=== PATIENT | male | born 1945 | race African-American/Black ===

== ENCOUNTER 2017-06-21 05:26 | Inpatient (IN) ==
[2017-06-12 09:57] LABS: Basophils % 0.3 % (0.0-0.8); Eosinophils # 0.1 10*3/uL (0.0-0.87); Eosinophils % 1.6 % (0.00-10.9); Hematocrit 34.9 VOL% (42.0-52.0); Hemoglobin 11.8 GM/DL (14.0-18.0); Immature Granulocytes % 0.4 %; Immature Granulocytes Absolute 0.03 #; Lymphocytes # 2.2 10*3/uL (1.4-4.0); Lymphocytes % 31.3 % (21.2-54.2); Mean Corpuscular HGB Conc 33.8 GM/DL (32-36); Mean Corpuscular Hemoglobin 28 PG (27-34); Mean Corpuscular Volume 83.7 FL (87-102); Mean Platelet Volume 8.7 FL (9.6-12.0); Monocytes # 0.6 10*3/uL (0.11-0.8); Monocytes % 8.5 % (1.7-12.7); Neutrophils % 57.9 % (38.7-73.9); Platelet Count 350 T/CUMM (130-400); Red Blood Count 4.17 MC/CUMM (3.8-5.5); Red Cell Distribution Width 13.8 % (9.3-17.3); White Blood Count 6.9 T/CUMM (4-12)
[2017-06-12 10:07] LABS: Apearance,Urine CLEAR (Clear); Bacteria,Urine Occasional /HPF (Few); Bilirubin,Urine Negative (Negative); Blood, Urine Negative (Negative); Glucose,Urine (UA) 50 mg/dL (Negative); Ketones,Urine Negative (Negative); Mucus,Urine Occasional /LPF (Occasional); Nitrite,Urine Negative (Negative); Protein,Urine Negative; RBC,Urine <1 /HPF (0-4); Urine Color Yellow (Yellow); Urine Specific Gravity 1.014 (1.001-1.035); Urine Urobilinogen < 2.0 EU/DL (0.2-1.0); WBC,Urine <1 /HPF (0-6)
--- NOTE | 2017-06-12 10:27 | EKG Report ---
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
[2017-06-12 10:30] LABS: Osmolality,Calculated 285.3 MOS/KG (273-304); Potassium 3.4 MMOL/L (3.5-5.1)
[2017-06-21] MEDS ORDERED: ALVIMOPAN 12 MG CAPSULE ONE (06:00)
[2017-06-21] MEDS ORDERED: SODIUM PHOSPHATE ENEMA 133 ML BOTTLE RECTAL ONE ×2 (06:00→06:01)
[2017-06-21] MEDS ORDERED: ALVIMOPAN 12 MG CAPSULE PO ONE (06:00)
[2017-06-21] MEDS ORDERED: cefTRIAXone 1,000 MG VIAL ONE (06:00)
[2017-06-21] MEDS ORDERED: cefTRIAXone 1,000 MG in SODIUM CHLORIDE 0.9% 100 ML IV ONE (06:00)
[2017-06-21] MEDS ORDERED: SODIUM CHLORIDE 0.9% 100 ML IV ONE (06:01)
[2017-06-21] MEDS ORDERED: LACTATED RINGERS 1,000 ML IV SCH (06:30)
[2017-06-21] MEDS ORDERED: KETOROLAC 30 MG/1 ML VIAL ONE (07:00)
[2017-06-21] MEDS ORDERED: LIDOCAINE 1% 5 ML VIAL ONE (07:00)
[2017-06-21] MEDS ORDERED: PHENYLEPHRINE 1 MG/10 ML SYRINGE IV ONE (07:00)
[2017-06-21] MEDS ORDERED: GLYCOPYRROLATE 0.4 MG/2 ML VIAL ONE (07:00)
[2017-06-21] MEDS ORDERED: PROPOFOL 200 MG/20 ML VIAL IV ONE (07:00)
[2017-06-21] MEDS ORDERED: ROCURONIUM 100 MG/10 ML VIAL IV ONE (07:00)
[2017-06-21] MEDS ORDERED: ONDANSETRON 4 MG/2 ML VIAL ONE (07:00)
[2017-06-21] MEDS ORDERED: NEOSTIGMINE 10 MG/10 ML VIAL ONE (07:00)
[2017-06-21] MEDS ORDERED: DEXAMETHASONE 10 MG/1 ML VIAL ONE (07:00)
[2017-06-21 08:12] LABS: Apearance,Urine CLEAR (Clear); Bilirubin,Urine Negative (Negative); Blood, Urine Moderate mg/dL (Negative); Glucose,Urine (UA) Negative (Negative); Ketones,Urine Negative (Negative); Nitrite,Urine Negative (Negative); Protein,Urine Negative; RBC,Urine 75 /HPF (0-4); Urine Color Straw (Yellow); Urine Specific Gravity 1.009 (1.001-1.035); Urine Urobilinogen < 2.0 EU/DL (0.2-1.0); WBC,Urine <1 /HPF (0-6)
[2017-06-21] MEDS ORDERED: ONDANSETRON 4 MG/2 ML VIAL IV PRN (12:05)
[2017-06-21] MEDS ORDERED: diphenhydrAMINE 50 MG/1 ML VIAL IV PRN (12:05)
--- NOTE | 2017-06-21 12:22 | Anesthesia Post-Op ---
Anesthesia Post OP - Post Ansesthetic Evaluation Patient seen in post op: Yes Resp: within normal limits CV: within normal limits Mental: within normal limits Temp: within normal limits Nllu-[id number]-Peztdjdtn: within normal limits Nausea and Vomiting: within normal limits Pain: within normal limits
--- NOTE | 2017-06-21 12:25 | Operative Note ---
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 This procedure was explained at length and in detail. Risks, complications, outcomes, sequelae, prognosis and alternative therapy was discussed. Patient understood this and agreed to proceed. Patient is brought to the operative suite placed table in the supine position on the securing pads and given a general endotracheal anesthetic. He is then secured to the table in lithotomy position and then prepared and draped in the usual sterile manner. 22 Palauan Blake was placed in the bladder. Left to gravity after draining the bladder. Patient is an placed in lithotomy position. Incision is created in the left upper quadrant for the mini gel port. This then placed and pneumoperitoneum was obtained. Camera was inserted in this and the intra-abdominal contents are noted. There is no significant adhesions to the abdominal wall. There is some adhesions on the left side of the colon which is common will have to be taken down. Camera port is then placed through the incision up above the umbilicus. About 8 cm to the left and right of the camera to the operating ports are placed under direct vision and lateral to the third arm on the right fourth arm is placed about 8 cm #3. This is all done under direct vision. The robot was then docked and I went to the console. [place] bipolar forceps in the left and monopolar scissors in the right posterior approach was begun. Incision is created in the anterior cul-de-sac and vas deferens identified isolated clipped with a Weck clip and divided. This done on both both of them. Seminal vesicles and dissected out of bed. Window in Denonvilliers's fascia is created. It is very apparent at this point that this is a very large prostate. This was known in the try to shrink it somewhat Avodart. Attention was directed to the creating the bladder flap. The urachus is well- defined as well as median umbilical ligaments these are both divided and the bladder flap dropped down in the pelvis. Endopelvic fascia was incised bilaterally. And again very apparent this is a quite a large prostate. Puboprostatics were incised. Dorsal vein was ligated with #1 Vicryl. It was difficult to ascertain exactly where the bladder and prostate were joined but with bunching of the tissue and light traction on the Blake the bladder neck was incised anteriorly. The bladder was entered. Very large prostate so our bladder neck is going to be wine. And actually his prostate is asymmetric with the right side being smaller than the left. Ureteral orifices were identified but were close due to the size of the prostate so umbilical catheters were passed up each ureter and then placed in the bladder to help identify them. Posterior bladder neck is incised and dissection was continued posteriorly for quite some distance as this is a large prostate. Lateral lobe bladder neck was incised and pedicles were intermittently taken down and with clipped and divided. This took quite a lot of time to the size of the prostate. We attempted to spare his nerves even though this is a large prostate the lateral prostatic fascia was incised and there is was divided on both sides. Posterior lateral pedicles were taken down intermittently and Weck clipped and divided. Prostate was pulled up and dissection was continued posteriorly. The nerve was dissected laterally. This was difficult due to the size of the prostate. But I was eventually able to dissect almost to the apex with sparing as much of the nerve is likely on both sides. The dorsal vein was then divided and dissection was continued laterally where the the lateral prostatic fascia was incised and the nerve was swept laterally. The urethra was then divided Blake catheter was pulled back and the posterior urethra was divided remainder attachments were sharply divided. Prostate was associated seminal vesicles were then placed in specimen bag and pulled to the side. Inspection of the bladder neck revealed that this is going to have to be reconstructed as this is just too large for an anastomosis. And we will do this with a tennis racquet fashion. About half of the bladder neck was then closed in this fashion. A 4-0 Vicryl was used in running to close the mucosa and a 2 oh rony suture was then used to close it with a tennis racquet anteriorly. No dissection was done on both sides. Adventitia the external iliac vein was entered the markell tissue was swept obturator fossa. The obturator nerve was identified kept in view at all team times and not injured. This was done on both sides. 3 okay vidian was was used to provide the anastomosis beginning at 6 o'clock position. A 2-0 Vicryl Sergio stitch was placed prior to the anastomosis to help with approximation. But a new 22 Palauan Blake catheter was then placed in the bladder after anastomosis and tied and this was a surprisingly watertight anastomosis. But due to the large bladder neck and the reconstruction I will elected leave a drain. A small Graeme-Stern was placed in the pelvis. Pneumoperitoneum was dropped there is no significant bleeding. I re-scrubbed and came back to the table. The patient was laying in supine position after undocking and the ports were removed. The mini port incision had to be extended due to the size of the prostate with the prostate was then removed with this associated seminal vesicles and this wound was then closed with interrupted #1 Vicryl. All other wounds were irrigated and drained and hemostasis checked. And skin closed skin clips. Drain was pulled out through the fourth arm this was sewn to the skin with 2-0 silk. Sterile dressings were placed on the wound. Patient was then awakened general anesthesia having tolerated procedure well and was sent to the recovery room in stable condition. All sponge, needle and instrument counts correct 2. Implants: 22 Palauan silicone Blake Anesthesia: GETA Surgeon / Physician: Familia Jarvis Estimated blood loss: other (300 cc) Specimens: other (Prostate with associated seminal vesicles, bilateral obturator nodes) Condition: stable Disposition: PACU Results - Labs CBC & BMP: 06/12/17 09:49 06/21/17 06:07 Discharge Plan - Discharge Medications No Action Atorvastatin [Lipitor] 20 mg PO BEDTIME Lisinopril/Hydrochlorothiazide [Lisinopril-Hctz 20-25 mg Tab] 1 each PO DAILY Amlodipine Besylate 10 mg PO DAILY metFORMIN [Glucophage] 500 mg PO BID W/MEALS Dutasteride 0.5 mg PO DAILY - Follow Up or Referral - Forms/Instructions
[2017-06-21] MEDS ORDERED: DESFLURANE 1 UNIT/15 MINUTE INH ONE (12:26)
[2017-06-21] MEDS ORDERED: MIDAZOLAM 2 MG/2 ML VIAL ONE (12:28)
[2017-06-21] MEDS ORDERED: ACETAMINOPHEN 1,000 MG/100 ML VIAL IV ONE (12:28)
[2017-06-21] MEDS ORDERED: LACTATED RINGERS 1,000 ML IV ONE (12:28)
[2017-06-21] MEDS ORDERED: HYDROmorphone PCA 30 MG/30 ML SYRINGE IV SCH (12:30)
[2017-06-21] MEDS ORDERED: HYDROmorphone PCA 30 MG/30 ML SYRINGE IV ONE (12:35)
[2017-06-21] MEDS: SODIUM CHLORIDE 0.45% 1,000 ML IV SCH ×2 (12:50→21:16)
[2017-06-21] MEDS ORDERED: GLUCAGON 1 MG VIAL IM PRN (13:38)
[2017-06-21] MEDS ORDERED: DEXTROSE 50% 25 GM/50 ML SYRINGE IV PRN (13:38)
--- NOTE | 2017-06-21 14:27 | Hospitalist Consult Note ---
Assessment and Plan - Time spent with patient Time spent with patient: Greater than 30 minutes (1) Diabetes Status: Acute Assessment and plan: 71-year-old -Citizen Of [place] male with history of diabetes and hypertension admitted by Dr. Familia Jarvis for robotic assisted laparoscopic prostatectomy that was performed this morning. Patient's metformin will be held during this hospital stay and sliding scale insulin has been started. We will monitor his blood sugars before meals and at bedtime. Patient's antihypertensives have been restarted and we will monitor for narcotic induced hypotension. Patient will continue with IV fluids and diet as tolerated for now. Dr. Arteaga will see and examine patient and further recommendations to follow. Current Visit: Yes (2) Hypertension Status: Acute Current Visit: Yes (3) Status post prostate surgery Status: Acute Current Visit: Yes History of Present Illness - Data of Consult Patient: new to practice Consult date: 06/21/17 Requesting Physician: Familia Jarvis Primary care physician: Seth Medellin - Consult Narrative Reason for consult: medical management History of present illness: Mr. Abarca is a 71 year old male with history of diabetes, hypertension, prostate cancer admitted by Dr. Jarvis for robotic assisted laparoscopic prostatectomy for prostate cancer. Patient is doing well recovering in the room. He is awake and alert but sleepy. He is a patient of Dr. Medellin. He has been following up with Dr. Jarvis for benign prostatic hyperplasia with lower urinary tract symptoms. Patient is afebrile and his vital signs are stable. His preoperative labs are relatively normal with a blood sugar of 284. His dressings are intact with some oozing, a ADAMARIS drain with bloody fluid, and Blake with bloody urine. Hospitalist been consulted for medical management. Patient' s medicines have been reconciled and he is a full code. CC: Familia Jarvis MD - Home Medications and Allergies Home Medications: Home Medications Medication Instructions Recorded Confirmed Type Amlodipine Besylate 10 mg PO DAILY 06/12/17 06/21/17 History Atorvastatin [Lipitor] 20 mg PO BEDTIME 06/12/17 06/21/17 History Dutasteride 0.5 mg PO DAILY 06/12/17 06/21/17 History Lisinopril/Hydrochlorothiazide 1 each PO DAILY 06/12/17 06/21/17 History [Lisinopril-Hctz 20-25 mg Tab] metFORMIN [Glucophage] 500 mg PO BID W/MEALS 06/12/17 06/21/17 History Allergies/Adverse Reactions: Allergies Allergy/AdvReac Type Severity Reaction Status Date / Time No Known Allergies Allergy Verified 06/21/17 06:31 Medical,Surgical,& Family Hx - Medical History Cardio: History of: Hypertension Psychological: No history of: Anxiety Disorders, ADHD, Behavior Problems, Bipolar Disorder, Depression, Previous Suicide Attempt, Psychiatric/Substance Abuse Tx, Schizophrenia, Violent Behavior, Psychiatric Problems Neurology: No history of: Seizures HEENT: History of: Eye Problem (GLASSES) Endocrine: History of: Diabetes Mellitus (NIDDM), Dyslipidemia Respiratory: No history of: Respiratory Problems (FLU VAC-NO; PNEU VAC- NO.) Genitourinary: History of: Prostate Problems - Surgical History Cardiac Surgeries: Patient Denies: Cardiac Catheterization Reproductive Surgeries: Surgical HX of;: Prostate Surgery - Family History Family History: Reports;: Family Diabetes, Family Hypertension Denies;: Family Anesthesia Reaction, Family Cancer, Family Heart Disease, Family Hematology, Family Psychiatric Problems, Family Stroke - Social History Smoking Status: Never smoker Frequency of Alcohol Use: None Type of Drug Use: None Marital Status: Lives With:: Spouse Functional capacity: independent ambulation 12 point system: reviewed and no additional remarkable complaints except as stated Exam - Constitutional Vitals: Period Temp Pulse Resp BP Sys/Gottlieb Pulse Ox Last 24 Hr 97.6 F-98.7 F 78-86 16-18 94-147/56-74 93-99 Exam: Constitutional System: No distress. No tremulousness. Head: Normocephalic, atraumatic. Ears, Nose and Throat System: No evidence of Otitis or Mastoiditis. No epistaxis or discharge Eyes System: Pupils equal, round, and reactive. Extraocular muscles intact. Neck: Supple, without adenopathy, No jugular venous distention. No thyromegaly, neck mass, or prior surgery apparent. Respiratory System: Chest clear to auscultation. Cardiovascular System: Heart with regular rate and rhythm. No murmur. GI System: Abdomen soft, appropriately tender. Hypo-active bowel sounds present. Dressings intact with some oozing, ADAMARIS drain with bloody fluid, Blake with bloody urine Musculoskeletal System: limbs with no pedal edema. Full distal pulses. Neurological System: No discernable sensory deficit. No aphasia Psychiatric System: Conversation is rational Results - Labs CBC & BMP: 06/12/17 09:49 06/21/17 06:07 Lab Results: I have reviewed the past 24 hour labs
[2017-06-21] MEDS ORDERED: metFORMIN 500 MG TABLET PO SCH (17:00)
[2017-06-21] MEDS: INSULIN LISPRO 100 UNIT/ML SUBCUT SCH (17:09)
--- NOTE | 2017-06-21 18:57 | Urology Progress Note ---
Urology - PN: Subj Interval history: Postoperative check. Patient is awake and alert he sitting in the chair. His urine is bloody. This is not surprising considering the reconstruction I had to do his bladder neck. His ADAMARIS put out 110 cc and this is not surprising either considering the amount of surgery and the size of his prostate. He looks well. His vital signs are stable. He is having minimal pain. Patient is stable. Exam - Constitutional Vitals: Period Temp Pulse Resp BP Sys/Gottlieb Pulse Ox Last 24 Hr 97.6 F-98.7 F 78-86 16-19 94-147/56-74 93-99 Results - Labs CBC & BMP: 06/12/17 09:49 06/21/17 06:07
[2017-06-21] MEDS: ATORVASTATIN 20 MG TABLET PO SCH (21:17)
[2017-06-21] MEDS: ALVIMOPAN 12 MG CAPSULE PO SCH (21:17)
[2017-06-21] MEDS: LACTULOSE 20 GM/30 ML UDCUP PO SCH (21:17)
[2017-06-22] MEDS: LACTULOSE 20 GM/30 ML UDCUP PO SCH ×2 (08:03→20:24)
[2017-06-22] MEDS: LISINOPRIL/HCTZ 20-25 MG TABLET PO SCH (08:03)
[2017-06-22] MEDS: OXYBUTYNIN XL 10 MG TABLET PO SCH (08:04)
[2017-06-22] MEDS: ALVIMOPAN 12 MG CAPSULE PO SCH ×2 (08:05→20:24)
[2017-06-22] MEDS: INSULIN LISPRO 100 UNIT/ML SUBCUT SCH ×2 (08:08→17:07)
[2017-06-22 08:09] LABS: Basophils % 0.1 % (0.0-0.8); Eosinophils % 0.1 % (0.00-10.9); Hematocrit 27.6 VOL% (42.0-52.0); Hemoglobin 9.2 GM/DL (14.0-18.0); Immature Granulocytes % 0.4 %; Immature Granulocytes Absolute 0.04 #; Lymphocytes # 1.9 10*3/uL (1.4-4.0); Lymphocytes % 17.2 % (21.2-54.2); Mean Corpuscular HGB Conc 33.3 GM/DL (32-36); Mean Corpuscular Hemoglobin 28 PG (27-34); Mean Corpuscular Volume 82.6 FL (87-102); Mean Platelet Volume 9.2 FL (9.6-12.0); Monocytes % 9.4 % (1.7-12.7); Neutrophils # 7.9 10*3/uL (1.4-7.4); Neutrophils % 72.8 % (38.7-73.9); Platelet Count 272 T/CUMM (130-400); Red Blood Count 3.34 MC/CUMM (3.8-5.5); Red Cell Distribution Width 13.7 % (9.3-17.3); White Blood Count 10.8 T/CUMM (4-12)
[2017-06-22 08:38] LABS: Hypochromasia 1+; Lymphocytes 8 % (20-55); Platelet Estimate Adequate; Segmented Neutrophils 79 % (50-85); Total Cells Counted 100
[2017-06-22] MEDS: amLODIPine 10 MG TABLET PO SCH (08:38)
[2017-06-22 08:40] LABS: Osmolality,Calculated 280.5 MOS/KG (273-304); Potassium 3.3 MMOL/L (3.5-5.1)
[2017-06-22] MEDS: SODIUM CHLORIDE 0.45% 1,000 ML IV SCH ×2 (08:44→20:23)
[2017-06-22] MEDS ORDERED: oxyCODONE/ACETAMINOPHEN 5-325 MG TABLET PO PRN (09:14)
[2017-06-22] MEDS ORDERED: MEPERIDINE 50 MG/1 ML VIAL IM PRN (09:15)
[2017-06-22] MEDS ORDERED: POTASSIUM CHLORIDE 20 MEQ TABLET PO ONE (10:05)
--- NOTE | 2017-06-22 10:05 | Hospitalist Progress Note ---
Assessment and Plan - Time spent with patient Time spent with patient: Less than 30 minutes (1) Diabetes Status: Acute Assessment and plan: 71-year-old -[place] male with history of diabetes and hypertension admitted by Dr. Familia Jarvis for robotic assisted laparoscopic prostatectomy that was performed this morning. Patient's metformin will be held during this hospital stay and sliding scale insulin has been started. We will monitor his blood sugars before meals and at bedtime. Patient's antihypertensives have been restarted and we will monitor for narcotic induced hypotension. Patient will continue with IV fluids and diet as tolerated for now. Dr. Arteaga will see and examine patient and further recommendations to follow. 06/22/2017 patient is doing great this morning. He is tolerating a diet and pain is controlled. He is not using his FINGER LIFT OPERATOR so we will go ahead and DC the FINGER LIFT OPERATOR and start p.o. pain medications. Will get patient up and walking today. His ADAMARIS output is 50 mL of bloody fluid the last 12 hours, and urine output is bloody but okay. Patient's blood sugars are well controlled along with blood pressure. We will continue to monitor these. Will defer to Dr. Jarvis for removal of Blake and discharge day. Discussed with Dr. Arteaga. Current Visit: Yes (2) Hypertension Status: Acute Current Visit: Yes (3) Status post prostate surgery Status: Acute Current Visit: Yes Hospitalist: Subjective Interval history: Patient looks and feels well this morning. His pain is well controlled. He is tolerating a diet without any nausea or vomiting. He did get up in the chair last night but he is expressing interest in walking today. Exam - Constitutional Vitals: Period Temp Pulse Resp BP Sys/Gottlieb Pulse Ox Last 24 Hr 97.4 F-98.7 F 74-86 16-20 94-121/56-72 93-99 Exam: Constitutional System: No distress. No tremulousness. Head: Normocephalic, atraumatic. Ears, Nose and Throat System: No evidence of Otitis or Mastoiditis. No epistaxis or discharge Eyes System: Pupils equal, round, and reactive. Extraocular muscles intact. Neck: Supple, without adenopathy, No jugular venous distention. No thyromegaly, neck mass, or prior surgery apparent. Respiratory System: Chest clear to auscultation. Cardiovascular System: Heart with regular rate and rhythm. No murmur. GI System: Abdomen soft, appropriately tender. bowel sounds present. Dressings intact with some oozing, ADAMARIS drain with bloody fluid, Blake with bloody urine Musculoskeletal System: limbs with no pedal edema. Full distal pulses. Neurological System: No discernable sensory deficit. No aphasia Psychiatric System: Conversation is rational Results - Labs CBC & BMP: 06/22/17 07:00 06/22/17 07:00 Lab Results: I have reviewed the past 24 hour labs
--- NOTE | 2017-06-22 11:05 | Urology Progress Note ---
Urology - PN: Subj Interval history: Patient has stable night. Wounds are healing well. Urine still slightly bloody. I am not surprised considering the reconstruction I had the due to his bladder neck. His ADAMARIS is decreasing. We will probably remove it tomorrow. We will stop his COMPUTER SYSTEMS INTEGRATOR and place him on oral medication. He needs to ambulate. Pathology report is pending of course. Exam - Constitutional Vitals: Period Temp Pulse Resp BP Sys/Gottlieb Pulse Ox Last 24 Hr 97.4 F-98.7 F 74-86 16-20 94-121/56-73 93-99 Results - Labs CBC & BMP: 06/22/17 07:00 06/22/17 07:00
[2017-06-22] MEDS ORDERED: ALUMINUM/MAGNES/SIMETH MAX STR 30 ML UDCUP PO PRN (17:12)
[2017-06-22] MEDS: ATORVASTATIN 20 MG TABLET PO SCH (20:24)
[2017-06-23] MEDS: SODIUM CHLORIDE 0.45% 1,000 ML IV SCH (05:36)
[2017-06-23 06:47] LABS: Basophils % 0.1 % (0.0-0.8); Eosinophils % 0.2 % (0.00-10.9); Hematocrit 30.1 VOL% (42.0-52.0); Hemoglobin 9.9 GM/DL (14.0-18.0); Immature Granulocytes % 0.4 %; Immature Granulocytes Absolute 0.04 #; Lymphocytes # 2.3 10*3/uL (1.4-4.0); Mean Corpuscular HGB Conc 32.9 GM/DL (32-36); Mean Corpuscular Hemoglobin 27 PG (27-34); Mean Corpuscular Volume 82.7 FL (87-102); Mean Platelet Volume 9.2 FL (9.6-12.0); Monocytes # 0.9 10*3/uL (0.11-0.8); Monocytes % 8.7 % (1.7-12.7); Neutrophils % 68.6 % (38.7-73.9); Platelet Count 322 T/CUMM (130-400); Red Blood Count 3.64 MC/CUMM (3.8-5.5); Red Cell Distribution Width 13.7 % (9.3-17.3); White Blood Count 10.3 T/CUMM (4-12)
[2017-06-23] MEDS: amLODIPine 10 MG TABLET PO SCH (08:33)
[2017-06-23] MEDS: OXYBUTYNIN XL 10 MG TABLET PO SCH (08:33)
[2017-06-23] MEDS: ALVIMOPAN 12 MG CAPSULE PO SCH (08:33)
[2017-06-23] MEDS: LACTULOSE 20 GM/30 ML UDCUP PO SCH (08:34)
[2017-06-23] MEDS: INSULIN LISPRO 100 UNIT/ML SUBCUT SCH (08:34)
[2017-06-23] MEDS: LISINOPRIL/HCTZ 20-25 MG TABLET PO SCH (08:34)
--- NOTE | 2017-06-23 09:12 | Discharge Summary ---
Hospital Course - Hospital Course Hospital Course: 71-year-old gentleman with intermediate risk carcinoma prostate underwent a robotic prostatectomy. He had a very large prostate and had to reconstruct his bladder neck. Pathology report is pending. Blood count is 10 and 30. His potassium was low but was supplemented up to 3.6. His ADAMARIS drainage is serosanguineous we will remove that. His urine is clear. We will discharge him see me in the office in 2 weeks. Diagnosis - Discharge Diagnosis (1) Diabetes Status: Acute (2) Hypertension Status: Acute (3) Status post prostate surgery Status: Acute Discharge Plan - Discharge Data Disposition: Disch To Home/Self Care Condition at Discharge: Stable Discharge Diet: diabetic diet Activity: no lifting, other (Walking on flat ground is encouraged no strenuous activity) Hygiene: no restrictions Weight Bearing at Discharge: full weight bearing Driving: not until seen by doctor Contact your physician if you experience:: fever over 101, Bleeding, pain uncontrolled by pain medications - Discharge Medications New Oxybutynin Xl [Ditropan Xl] 10 mg PO DAILY tablet oxyCODONE/ACETAMINOPHEN 5-325 [Percocet 5-325] 1 - 2 tablet PO Q4H PRN tablet PRN Reason: Pain Moderate (4-7) Continue Atorvastatin [Lipitor] 20 mg PO BEDTIME Lisinopril/Hydrochlorothiazide [Lisinopril-Hctz 20-25 mg Tab] 1 each PO DAILY Amlodipine Besylate 10 mg PO DAILY metFORMIN [Glucophage] 500 mg PO BID W/MEALS Discontinued Dutasteride 0.5 mg PO DAILY - Follow Up or Referral - Forms/Instructions Exam - Constitutional Vitals: Period Temp Pulse Resp BP Sys/Gottlieb Pulse Ox Last 24 Hr 97.6 F-99.4 F 82-98 16-20 125-143/69-78 93-99 Discharge Results Labs on day of discharge: Labs from last 24 hours 06/23/17 06/23/17 06/23/17 07:18 05:37 05:37 WBC 10.3 RBC 3.64 L Hgb 9.9 L Hct 30.1 L MCV 82.7 L MCH 27 MCHC 32.9 RDW 13.7 Plt Count 322 MPV 9.2 L Neut % (Auto) 68.6 Lymph % (Auto) 22.0 Smith % (Auto) 8.7 Eos % (Auto) 0.2 Baso % (Auto) 0.1 Neut # (Auto) 7.0 Lymph # (Auto) 2.3 Smith # (Auto) 0.9 H Eos # (Auto) 0.0 Baso # (Auto) 0.0 Immature Gran % 0.4 Nucleated RBC % 0.0 Immature Gran # 0.04 Nucleated RBCs # 0.00 Immature Plt Fraction 0.0 Potassium 3.6 POC Glucose 166 H 06/22/17 06/22/17 06/22/17 19:25 16:33 12:38 WBC RBC Hgb Hct MCV MCH MCHC RDW Plt Count MPV Neut % (Auto) Lymph % (Auto) Smith % (Auto) Eos % (Auto) Baso % (Auto) Neut # (Auto) Lymph # (Auto) Smith # (Auto) Eos # (Auto) Baso # (Auto) Immature Gran % Nucleated RBC % Immature Gran # Nucleated RBCs # Immature Plt Fraction Potassium POC Glucose 135 H 181 H 191 H DS: Provider Date of admission: 06/21/17 12:05 Primary care physician: . No PCP Attending physician on admission: Familia Jarvis MD Consults: 06/22/17 09:21 Consult to Physician [CONS] Routine Comment: Consulting Provider: Cheryl Arteaga Consult Notification Comment: he is aware, saw on 06-21-2017 Discharging clinician: Familia Jarvis MD
[2017-06-23 12:34] VITALS: BP 140/70
--- NOTE | 2017-06-23 13:43 | Hospitalist Progress Note ---
Assessment and Plan - Time spent with patient Time spent with patient: Less than 30 minutes (1) Diabetes Status: Acute Assessment and plan: 71-year-old -Thai male with history of diabetes and hypertension admitted by Dr. Familia Jarvis for robotic assisted laparoscopic prostatectomy that was performed this morning. Patient's metformin will be held during this hospital stay and sliding scale insulin has been started. We will monitor his blood sugars before meals and at bedtime. Patient's antihypertensives have been restarted and we will monitor for narcotic induced hypotension. Patient will continue with IV fluids and diet as tolerated for now. Dr. Arteaga will see and examine patient and further recommendations to follow. 06/22/2017 patient is doing great this morning. He is tolerating a diet and pain is controlled. He is not using his QUICK MIXER OPERATOR so we will go ahead and DC the QUICK MIXER OPERATOR and start p.o. pain medications. Will get patient up and walking today. His ADAMARIS output is 50 mL of bloody fluid the last 12 hours, and urine output is bloody but okay. Patient's blood sugars are well controlled along with blood pressure. We will continue to monitor these. Will defer to Dr. Jarvis for removal of Blake and discharge day. Discussed with Dr. Arteaga. 06/23/2017 patient is doing great. He is tolerating a diet and his pain is controlled. His blood pressures are controlled and blood sugars as well. When okay with Dr. Jarvis he is okay for discharge on his regular home medications. Dr. Arteaga will see and examined patient and further recommendations to follow. Current Visit: Yes (2) Hypertension Status: Acute Current Visit: Yes (3) Status post prostate surgery Status: Acute Current Visit: Yes Hospitalist: Subjective Interval history: Patient feels great today. He is tolerating a diet and not using any pain medications. He is ambulating in the room in the halls. He is ready for discharge. Exam - Constitutional Vitals: Period Temp Pulse Resp BP Sys/Gottlieb Pulse Ox Last 24 Hr 98.0 F-99.4 F 90-98 16-20 128-143/70-78 93-99 Exam: Constitutional System: No distress. No tremulousness. Head: Normocephalic, atraumatic. Ears, Nose and Throat System: No evidence of Otitis or Mastoiditis. No epistaxis or discharge Eyes System: Pupils equal, round, and reactive. Extraocular muscles intact. Neck: Supple, without adenopathy, No jugular venous distention. No thyromegaly, neck mass, or prior surgery apparent. Respiratory System: Chest clear to auscultation. Cardiovascular System: Heart with regular rate and rhythm. No murmur. GI System: Abdomen soft, appropriately tender. bowel sounds present. Dressings intact with some oozing, ADAMARIS drain with bloody fluid, Blake with urine clearing Musculoskeletal System: limbs with no pedal edema. Full distal pulses. Neurological System: No discernable sensory deficit. No aphasia Psychiatric System: Conversation is rational Results - Labs CBC & BMP: 06/23/17 05:37 06/23/17 05:37 Lab Results: I have reviewed the past 24 hour labs Specialty Discharge - Follow Up or Referrals Follow up with: Familia Jarvis MD [Physician] - 07/05/17 2:00 pm
--- NOTE | 2017-06-23 19:16 | Pathology Report from [facility] ---
[facility] [place] ACCESSION # : [id number] PATIENT NAME : Jr. Parmar William ORDERING DR : ARA WASSERMAN MD CLINICAL HX: Prostate CA POST-OP DX: Same SPECIMEN INFO: #1 Pelvic mass #2 RT obturator node #2 LT obturator node #4 Prostate GROSS DESCRIPTION: #1 EPI PARMAR JR received fresh is a 0.8 x 0.6 cm firm ovoid hemorrhagic muñoz tissue fragmen submitted in #1 for frozen.#2 RT OBT NODE, EPI PARMAR JR received fresh is a 2.2 x 2.0 cm fatty tissue submitted entirely in cassette #2.#3 LT OBT NODE, EPI PARMAR JR received fresh is a 2.8 x 2.0 cm fatty tissue submitted entirely in 3A and 3B.#4 EPI PARMAR JR. received in formalin is a 7.0 x 6.3 x 6.3 cm, 155 gram prostate . The serosa is shaggy and muñoz with the right half inked black and the left half inked blue. Cut surfaces are muñoz and nodular. Sections: 4A apical margin, 4B base margin, 4C seminal vesicle margin, 4D thru 4K right apex to base, 4L thru 4Q left apex to base. DIAGNOSIS FOR EPI PARMAR JR.: #1-#4 PROSTATE, RADICAL PROSTATECTOMY (7.0 x 6.3 x 6.3 cm, 155 gm) WITH NODES: TYPE: Prostatic adenocarcinoma, acinar type. SITE: Unilateral (Right Base). GRADE: Primary Pattern Grade 3; Secondary Pattern Grade 3; Total Escobar Score = 6. ESCOBAR GRADE GROUP: 1 (<6). TUMOR QUANTITATION: Percentage of prostate involved by tumor 2%; Dominant nodule = 6 mm. MARGINS: Margins uninvolved by invasive carcinoma. EXTRAPROSTATIC EXTENSION: Not identified. SEMINAL VESICLE INVASION: Not identified. URINARY BLADDER NECK INVASION: Not identified. TREATMENT EFFECT: No presurgical therapy. LYMPH-VASCULAR INVASION: Not identified. PERINEURAL INVASION: Not identified. LYMPH NODES: Number examined = 1 (#2 LT obturator); Number involved = 0. ADDITIONAL FINDINGS: Nodular hyperplasia of prostate with acute and chronic prostatitis. ADDITIONAL SPECIMENS: #1 Infarcted appendices epiploica. #2 Fibroadipose tissue, no lymph node. AJCC (2018) PATHOLOGIC STAGE I ([id number]), Grade group 1, PSA 5.3 COLLECTED DATE: 06/21/2017 [facility] REPORT DATE: 06/23/2017 ELECTRONICALLY SIGNED BY: Alessandro Malagon M.D. 06/23/2017 - 14:19:38 [facility]
== END 2017-06-23 12:20 | disposition home or self-care (01) | DRG 708 ==
LOC: N.OR 05:26 → N.SDSINP 05:28 → N.5E 09:39
PROVIDERS: ADMIT Urology; ATTEND Urology